=== PATIENT | female | born 1975 | race Caucasian/White ===

== ENCOUNTER → 2020-10-10 | Outpatient (CLI) | payer OTHER ==
[2020-10-10 13:09] LABS: HEMOGLOBIN 17.2 gm/dl (12.3-15.3); RED BLOOD COUNT 5.38 M/UL (4.00-5.10); WHITE BLOOD COUNT 8.9 K/UL (4.5-11.0)
[2020-10-10 13:27] LABS: BUN/CREATININE RATIO 17 (0-10)
[2020-10-11 08:25] LABS: RHEUMATOID ARTHRITIS FACTOR <10.0 IU/mL (0.0-13.9); VITAMIN D, 25-HYDROXY 62.7 ng/mL (30.0-100.0)
== END ==
LOC: LAB 12:24
PROVIDERS: Nurse Practitioner Family
DX: M25.50 Pain in unspecified joint (principal); M79.10 Myalgia, unspecified site; R53.83 Other fatigue; D89.9 Disorder involving the immune mechanism, unspecified; R76.8 Other specified abnormal immunological findings in serum
CPT/HCPCS: 80053; 82550; 82728; 83520; 85025; 85652; 86140; 86200; 86431